=== PATIENT | female | born 1945 | race Caucasian/White ===

== ENCOUNTER 2024-05-15 17:40 | Observation (INO) | payer MEDICARE, SELFPAY ==
[2024-05-15] VITALS (7 sets, daily range): BP systolic 105–125; BP diastolic 47–89; PULSE 63–91; RESP 14–20; TEMP 36.4–36.8; O2SAT 93–97; BMI 25.4
--- NOTE | 2024-05-15 18:33 | CT_ITS ---
INDICATION: Pain EXAMINATION: CT ABDOMEN AND PELVIS WITHOUT CONTRAST - CT Abdomen And Pelvis W/O Contrast Injection TECHNIQUE: Helically acquired images were obtained of the abdomen and pelvis without oral or IV contrast. A radiation dose optimization technique was used for this scan. IV Contrast dosage and agent: None. Oral contrast: None. RADIATION DOSAGE (If Supplied By Facility): CTDIvol = ( 6.37 ) mGy, DLP = ( 308.77 ) mGycm COMPARISON: No pertinent previous examinations for comparison. FINDINGS: LOWER CHEST: 1. Lung bases are clear. 2. No cardiomegaly or pericardial effusion. 3. No significant coronary vascular calcifications. LIVER: The liver has normal configuration and density given the limitation of noncontrast exam.. No focal mass. GALLBLADDER AND BILIARY TREE: The gallbladder is surgically absent. No ductal dilatation. PANCREAS: No focal cystic or solid mass. SPLEEN: Normal size without focal cystic or solid mass. ADRENAL GLANDS: No nodules. KIDNEYS AND URETERS: Normal renal size and position. No hydronephrosis. PERITONEUM: No ascites or free air. No other fluid collection. BOWEL: Fluid-filled bowel segments including small and large bowel, sequelae of mild of diffuse enteritis is a consideration. Negligible formed stool noted. There is evidence of diverticulosis without diverticulitis. The appendix is not positively identified. LYMPH NODES: No enlarged mesenteric or retroperitoneal lymph nodes. VESSELS: Aorta is non-dilated. URINARY BLADDER: Unremarkable. REPRODUCTIVE ORGANS: No pelvic masses. ABDOMINAL WALL: No discrete abdominal or pelvic wall hernia. BONES: There is deformity of the superior endplate of L1 consistent with remote superior endplate compression. No acute fracture noted. No acutely acquired canal stenosis. No acute bony changes. CT/Abdomen/Pelvis without Cont IMPRESSION: 1. Fluid-filled large and small bowel segments with negligible formed stool. Sequelae of diffuse enteritis is a consideration. 2. No bowel obstruction abscess free fluid or free air. 3. Diverticulosis without diverticulitis. 4. The appendix is not positively identified and likely surgically absent. 5. Postop changes of prior cholecystectomy. No ductal dilatation. 6. No evidence of renal calcification or obstructive uropathy. Electronically Signed: Paco Veronica MD at 19:59 EST ,
[2024-05-15 19:07] LABS: Absolute Lymphocyte Count 0.12 X10^3/uL (0.83-4.51); Absolute Neutrophil Count 3.1 X10^3/uL (2.0-7.7); Basophil# 0.01 X10^3/uL; Basophil% 0.3 % (0-1); Eosinophil# 0.03 X10^3/uL; Eosinophils% 0.9 % (0-5); Hematocrit 36.4 % (37-47); Hemoglobin 12.2 g/dL (12.0-15.0); Lymphocyte # 0.12 X10^3/ul (0.83-4.51); Lymphocyte % 3.7 % (19-41); Mean Corp Hgb Conc 33.5 g/dL (32-36); Mean Corpuscular Hgb 33.5 pg (27.0-32.0); Mean Platelet Vol. 9.8 fl (6.2-12.0); Monocyte# 0.06 X10^3/uL; Monocyte% 1.8 % (0-10); NRBC Flagged by Analyzer 0 % (0-5); Neutrophil # 3.05 X10^3/uL (2.7-7.7); POSITIVE DIFFERENTIAL YES; Platelet Count 341 K/mm3 (150-450); RBC Distribution Width SD 59.2 fl (35.1-43.9); Red Blood Count 3.64 M/mm3 (4.2-5.4); White Blood Count 3.3 K/mm3 (4.4-11.0)
[2024-05-15] MEDS: 0.9% Normal Saline (500mL Bag) 500 ML 999 ML IV (19:09)
[2024-05-15] MEDS: Ondansetron 4 MG/2 ML Vial IV ×2 (19:09→22:51)
[2024-05-15] MEDS: fentaNYL 100 MCG/2 ML Ampul 25 MCG IV (19:09)
[2024-05-15 19:24] LABS: ALB/GLOB Ratio 1.1 RATIO (0.9-2.4); AST(SGOT) 72 U/L (15-37); Alanine Aminotransfer ALT/SGPT 77 U/L (13-56); Albumin, Serum 3.4 g/dL (3.2-5.0); Alkaline Phosphatase 124 U/L (45-117); Anion Gap 7 (5-15); BUN 20 mg/dL (7-18); BUN/Creat Ratio 25.2 RATIO (10-20); Calcium,Total 8.9 mg/dL (8.5-10.1); Chloride 112 mmol/L (98-107); Creatinine, Serum 0.79 mg/dL (0.55-1.02); EST Glomerular Filtration Rate 74 mL/min (>60); Est Glom Filt Rate - Afr Amer 90 mL/min (>60); Estimated Creatinine Clearance 47.85 ml/min; Globulin 3.1 g/dL (2.2-4.2); Glucose 120 mg/dL (74-106); Potassium 3.3 mmol/L (3.5-5.1); Protein, Total 6.5 g/dL (6.4-8.2); Sodium Level 142 mmol/L (136-145)
[2024-05-15 19:55] LABS: Squamous Epithelial Cells - UA 0 SEEN /hpf (5-10)
[2024-05-15 19:58] LABS: Color, Urine Straw (Yellow); Glucose, Dipstick Normal (Normal); Ketone-Dipstick Negative (Negative); Leukocyte Esterase-Dipstick 25 /ul (Negative); Nitrite-Dipstick Negative (Negative); Occult Blood-Urine 50 /ul (Negative); Protein-Dipstick 100 mg/dl (Negative); Specific Gravity, Urine 1.015 (1.002-1.030); Urine Clarity Cloudy (Clear); Urine Urobilinogen Normal (Normal)
[2024-05-15 20:04] LABS: Urine Bilirubin Dipstick 1 mg/dL (Negative)
[2024-05-15 20:07] LABS: Amorphous Sediment 4+; Bacteria 1+ /hpf (None Seen); Mucous, Urine 2+ /hpf (<or=2+); Red Blood Cells-Urine 5-10 SEEN /hpf (0-5); White Blood Cells 0-5 SEEN /hpf (0-5)
--- NOTE | 2024-05-15 20:23 | EDS_ITS ---
HPI HPI - GI History of Present Illness Chief Complaint: Flank Pain Informant: patient Narrative Narrative: Patient is a 79-year-old female presenting with acute onset of vomiting, inability to keep liquids down and right flank pain. Her symptom started after eating breakfast this morning. She notes he does feel lightheaded. She does reports every time she vomits she then pees improves her self. She is of a longstanding history of urinary incontinence. Patient states that she receives at [facility] for left-sided kidney stone. She states she had a urostomy and a stent. Those were removed a little over a week ago. She was seen by Dr. Dolan. She denies any fever or chills. [place] any chest pain or shortness of breath. Denies any change with urination. No other complaints or concerns reported this time. Had had prior cholecystectomy. [facility] Medical History (Updated 05/16/24 @ 01:[address] Kimmy Bennett, DO) GERD (gastroesophageal reflux disease) Alzheimer dementia Hemorrhoids Crohn's colitis Home Medications ?Medication ?Instructions ?Recorded ?Last Taken ?Type atorvastatin 20 mg tablet 20 mg PO DAILY 05/15/24 Unknown History cimetidine 200 mg tablet 200 mg PO 4X/DAY PRN PRN acid 05/15/24 Unknown History reflux cyanocobalamin (vitamin B-12) 1,000 mcg PO DAILY 05/15/24 Unknown History 1,000 mcg tablet escitalopram oxalate 10 mg tablet 10 mg PO DAILY 05/15/24 Unknown History esomeprazole magnesium 40 mg 40 mg PO Q24H 05/15/24 Unknown History capsule,delayed release estradiol 0.01% (0.1 mg/gram) vaginal 05/15/24 Unknown History vaginal cream fluticasone 250 mcg-salmeterol 50 1 ea inhalation BID 05/15/24 Unknown History mcg/dose blistr powdr for inhalation folic acid 1 mg tablet 1 mg PO DAILY 05/15/24 Unknown History memantine 5 mg tablet 5 mg PO DAILY 05/15/24 Unknown History mercaptopurine 50 mg tablet 50 mg PO DAILY crohn's 05/15/24 Unknown History potassium chloride 20 mEq 20 meq PO DAILY 05/15/24 Unknown History tablet,extended release(part/cryst) sucralfate 100 mg/mL oral 1 ml PO QHS 05/15/24 Unknown History suspension sulfamethoxazole 400 1 tab PO DAILY 05/15/24 Unknown History mg-trimethoprim 80 mg tablet Allergy/AdvReac Type Severity Reaction Status Date / Time Penicillins (PCN) Allergy Severe Swelling Verified 05/15/24 17:41 Surgical History H/O: hysterectomy History of cholecystectomy S/P small bowel resection Social History Smoking Status: Unknown if ever smoked ROS ROS ED Constitutional Constitutional ED: Denies chills or fever(s) Respiratory/Chest Respiratory/Chest: Denies cough Gastrointestinal Gastrointestinal: Reports abdominal pain, diarrhea, nausea and vomiting Genitourinary Genitourinary ED: Reports other Details: Urinary incontinence?chronic ; Denies dysuria or hematuria Musculoskeletal Musculoskeletal: Denies arthralgias or myalgias Integumentary Denies rash Hematologic/Lymphatic Hematologic/Lymphatic: Denies easy bleeding or easy bruising EXAM Physical Exam Const Vital Signs: 05/15/24 17:41 05/15/24 17:44 05/15/24 18:44 Temperature 97.5 F L 98 F 98 F Temperature Source Temporal Oral Oral Pulse Rate 91 91 89 Respiratory Rate 20 H 20 H 16 Blood Pressure 115/47 L 115/47 L 115/75 Blood Pressure Mean 69 69 88 Pulse Ox 96 96 94 Oxygen Delivery Method Room Air Room Air Room Air 05/15/24 19:00 05/15/24 20:00 05/15/24 21:00 Temperature 98 F 98.1 F 98.3 F Temperature Source Oral Oral Oral Pulse Rate 63 66 72 Respiratory Rate 14 18 16 Blood Pressure 125/53 H 108/56 L 105/89 H Blood Pressure Mean 77 73 94 Pulse Ox 96 97 93 Oxygen Delivery Method Room Air Room Air Room Air 05/15/24 23:00 05/15/24 23:00 Temperature 98.3 F Temperature Source Pulse Rate 72 71 Respiratory Rate 14 16 Blood Pressure 116/51 L 116/51 L Blood Pressure Mean 72 72 Pulse Ox 97 97 Oxygen Delivery Method Room Air Positive well nourished and well developed General Appearance ED: well developed HEENT Reports moist mucous membranes normocephalic Eyes PERRL Neck supple Resp normal respiratory effort and clear to auscultation bilaterally Cardio regular rate and regular rhythm GI non-tender and non-distended Auscultation: hyperactive bowel sounds Palpation: soft; Negative for tender, guarding or rigid Back/Spine no CVA tenderness Extremity full ROM Neuro Sensorium / Orientation: alert, oriented to person, oriented to place and oriented to time Motor Exam: general weakness Psych mental status grossly normal Skin no wounds Rashes: no rashes MDM MDM MDM Narrative Medical decision making narrative: Patient valuated for right-sided abdominal pain/flank pain as well as nausea and vomiting. Is only has baby had some diarrhea as well every time she vomits. Patient is given IV fentanyl, fluids and Zofran with improvement of symptoms. On repeat exam abdomen soft and nontender. Lab work including CBC, CMP, lactate and urinalysis is obtained. CT abdomen pelvis without contrast is obtained. Workup shows a mild leukopenia which could be suggestive of viral process. Hemoglobin is normal. CMP largely normal. She has a mild elevation of her AST and ALT but normal bilirubin. She has had a prior cholecystectomy. Low suspicion for choledocholithiasis. On exam she does not have tenderness in the right upper quadrant. Urinalysis shows small amount of blood but not particular ly consistent with UTI. Will send for culture however given her recent history. Patient is treated with Zofran and IV fluids. On repeat evaluation she still nauseous. She is given a second dose. She continues to have dry heaves. She states she does not feel comfortable going home. CT abdomen pelvis is most consistent with gastroenteritis with fluid-filled loops of small and large bowel. Consistent with diffuse enteritis. Patient unable to tolerate p.o. challenge and vomits. I started on maintenance fluid, magnesium added on and is given IV potassium replacement. Will be admitted for intractable nausea and vomiting. Urine culture pending but patient is on daily Bactrim per her urologist at this time. Case discussed with hospitalist for admission. Lab Data Attestation: I reviewed the patient's lab results. Labs: Laboratory Results - last 24 hr 05/15/24 05/15/24 05/15/24 17:55 18:40 19:39 WBC 3.3 L RBC 3.64 L Hgb 12.2 Hct 36.4 L MCV 100.0 H MCH 33.5 H MCHC 33.5 RDW Std Deviation 59.2 H RDW Coeff of Cesar 16.0 H Plt Count 341 MPV 9.8 Immature Gran % (Auto) 0.300 Neut % (Auto) 93.0 H Lymph % (Auto) 3.7 L [place] % (Auto) 1.8 Eos % (Auto) 0.9 Baso % (Auto) 0.3 Absolute Neuts (auto) 3.1 Absolute Lymphs (auto) 0.12 L Nucleated RBC % 0 Sodium 142 Potassium 3.3 L Chloride 112 H Carbon Dioxide 23.0 Anion Gap 7 BUN 20 H Creatinine 0.79 Estim Creat Clear Calc 47.85 Est GFR (MDRD) Af Amer 90 Est GFR (MDRD) Non-Af 74 BUN/Creatinine Ratio 25.2 H Glucose 120 H Lactic Acid 1.0 Calcium 8.9 Total Bilirubin 1.00 AST 72 H ALT 77 H Alkaline Phosphatase 124 H Total Protein 6.5 Albumin 3.4 Globulin 3.1 Albumin/Globulin Ratio 1.1 Urine Color Straw Urine Clarity Cloudy Urine pH 5.0 Ur Specific [place] 1.015 Urine Protein 100 H Urine Glucose (UA) Normal Urine Ketones Negative Urine Occult Blood 50 H Urine Nitrite Negative Urine Bilirubin 1 H Urine Urobilinogen Normal Ur Leukocyte Esterase 25 H Urine RBC 5-10 SEEN Urine WBC 0-5 SEEN Ur Squamous Epith Cells 0 SEEN Amorphous Sediment 4+ Urine Bacteria 1+ Urine Mucus 2+ Radiography Diagnostic Testing: Clinical Impression(s) from Imaging Studies Abdomen/Pelvis CT 05/15/24 18:33 IMPRESSION: 1. Fluid-filled large and small bowel segments with negligible formed stool. Sequelae of diffuse enteritis is a consideration. 2. No bowel obstruction abscess free fluid or free air. 3. Diverticulosis without diverticulitis. 4. The appendix is not positively identified and likely surgically absent. 5. Postop changes of prior cholecystectomy. No ductal dilatation. 6. No evidence of renal calcification or obstructive uropathy. Electronically Signed: Paco Veronica MD at 19:59 EST , Management Discussion w/another healthcare provider: Hospitalist Discharge Plan Triage Chief Complaint: Flank Pain ED Provider: Kimmy Bennett Dx/Rx/DC Orders Clinical Impression: Intractable nausea and vomiting, Gastroenteritis, Hypokalemia Prescriptions: No Action atorvastatin 20 mg tablet 20 mg PO DAILY cyanocobalamin (vitamin B-12) 1,000 mcg tablet 1,000 mcg PO DAILY cimetidine 200 mg tablet 200 mg PO 4X/DAY PRN PRN (Reason: acid reflux) esomeprazole magnesium 40 mg capsule,delayed release(DR/EC) 40 mg PO Q24H escitalopram oxalate 10 mg tablet 10 mg PO DAILY fluticasone propion-salmeterol 250-50 mcg/dose blister with device 1 ea INHALATION BID mercaptopurine 50 mg tablet 50 mg PO DAILY folic acid 1 mg tablet 1 mg PO DAILY estradiol 0.01 % (0.1 mg/gram) cream vaginal memantine 5 mg tablet 5 mg PO DAILY sulfamethoxazole-trimethoprim 400-80 mg tablet 1 tab PO DAILY sucralfate 100 mg/mL suspension 1 ml PO QHS potassium chloride 20 mEq tablet,ER particles/crystals 20 meq PO DAILY Primary Care Provider: Laura Johnston Referrals: Laura Johnston DO [Primary Care Provider] - Print Language: Hebrew Disposition Disposition: Acute Care Hospital [facility]
[2024-05-15] MEDS: 0.9% Normal Saline (1000mL) 1,000 ML 100 ML IV (22:51)
[2024-05-16] VITALS (9 sets, daily range): BP systolic 109–129; BP diastolic 56–63; PULSE 68–78; RESP 14–20; TEMP 36.6–37.2; O2SAT 94–97; BMI 25.7
--- NOTE | 2024-05-16 01:09 | HP.PCM.HOS_ITS ---
[facility] - General General Date of Admission: 05/16/24 Date of Service: 05/16/24 Chief Complaint: Nausea, Vomiting and Abdominal Pain. HPI Narrative VANDANA ROSEN, is a 79 F with a past medical history of hyperlipidemia; on atorvastatin, Alzheimer's dementia; on memantine, history of depression; on escitalopram, history of COPD; on fluticasone-salmeterol, history of Crohn's disease; s/p small bowel resection on mercaptopurine, history of Severe GERD; on cimetidine, esomeprazole and sucralfate, history of hemorrhoids, chronic urinary incontinence, history of hysterectomy, history of cholecystectomy, listed allergy to PCN (swelling) and recently diagnosed Left-sided kidney stone; s/p urostomy and stent at [facility] removed a little over a week ago by Dr. Dolan with her still taking Bactrim for a prescribed 30 day course who presents to [facility] ER complaining of nausea, vomiting and abdominal pain. Ms. Rosen reports her acute symptoms began on the morning of May 15, 2024 after eating breakfast with nausea and lightheadedness followed by multiple episodes of bilious emesis. She also admits to abdominal pain that was primarily focused in her Right lower abdomen and flank with nonbloody diarrhea but she denies associated fever, chills, chest pain, SOB, dysuria, hematuria, recent sick contacts or a known personal history of Clostridium difficile colitis. In the ER she was noted to have CT evidence of fluid-filled large and small bowel segments with negligible formed stool consistent with suspected Enteritis with no evidence bowel obstruction, abscess, free-fluid or free-air c omplicated by laboratory evidence of Leukopenia of 3.3K and Hypokalemia of 3.3 mmol/L present on admission along with an abnormal UA significant for colonization rather than acute infection and she was then admitted to the general medical floor under observation status for ongoing care for a stay that is expected to be less than 2 midnights. [facility] Medical History (Updated 05/16/24 @ 04:[address] Hermelindo Trejo, DO) GERD (gastroesophageal reflux disease) Alzheimer dementia Hemorrhoids Crohn's colitis Home Medications ?Medication ?Instructions ?Recorded ?Last Taken ?Type atorvastatin 20 mg tablet 20 mg PO DAILY hld 05/15/24 Unknown History cimetidine 200 mg tablet 200 mg PO 4X/DAY PRN PRN acid 05/15/24 Unknown History reflux cyanocobalamin (vitamin B-12) 1,000 mcg PO DAILY supplement 05/15/24 Unknown History 1,000 mcg tablet escitalopram oxalate 10 mg tablet 10 mg PO DAILY depression 05/15/24 Unknown History esomeprazole magnesium 40 mg 40 mg PO Q24H gerd 05/15/24 Unknown History capsule,delayed release fluticasone 250 mcg-salmeterol 50 1 ea inhalation BID copd 05/15/24 Unknown History mcg/dose blistr powdr for inhalation folic acid 1 mg tablet 1 mg PO DAILY supllement 05/15/24 Unknown History memantine 5 mg tablet 5 mg PO DAILY dementia 05/15/24 Unknown History mercaptopurine 50 mg tablet 50 mg PO DAILY crohn's 05/15/24 Unknown History potassium chloride 20 mEq 20 meq PO DAILY supplement 05/15/24 Unknown History tablet,extended release(part/cryst) sucralfate 100 mg/mL oral 1 ml PO QHS stomach 05/15/24 Unknown History suspension sulfamethoxazole 400 1 tab PO DAILY atb 05/15/24 Unknown History mg-trimethoprim 80 mg tablet Allergy/AdvReac Type Severity Reaction Status Date / Time Penicillins (PCN) Allergy Severe Swelling Verified 05/15/24 17:41 Surgical History (Updated 05/16/24 @ 04:[address] Hermelindo Trejo DO) H/O: hysterectomy History of cholecystectomy S/P small bowel resection Social History Smoking Status: Former smoker ROS ROS Narrative Review of Systems: Constitutional: Patient denies fever or chills. Eyes: Patient denies changes in vision or discharge from eyes. ENT: Patient admits to thick phlegm in throat but she denies runny nose, sore throat or ear pain. Resp: Patient denies SOB or cough. CV: Patient denies chest pain, palpitations or heart racing. GI: Patient admits to abdominal pain with nausea and vomiting with bilious emesis and nonbloody diarrhea. : Patient admits to chronic urinary incontinence but she denies dysuria or hematuria. MSK: Patient denies arthralgias or myalgias. Skin: Patient denies rash, abscess or jaundice. Psych: Patient denies symptoms of uncontrolled depression or anxiety. Neuro: Patient denies headache, paresthesias or focal neurologic deficits. Allergy: Patient denies lip swelling, tongue swelling or urticaria. Hematology: Patient denies easy bleeding or easy bruisability. Endocrinology: Patient denies polyuria, polydipsia or polyphagia. 14 point ROS otherwise negative except for positives noted above in HPI. Vital Signs Vital Signs Vital Signs: 05/15/24 17:41 05/15/24 17:44 05/15/24 18:44 Temperature 97.5 F L 98 F 98 F Temperature Source Temporal Oral Oral Pulse Rate 91 91 89 Respiratory Rate 20 H 20 H 16 Blood Pressure 115/47 L 115/47 L 115/75 Blood Pressure Mean 69 69 88 Pulse Ox 96 96 94 Oxygen Delivery Method Room Air Room Air Room Air 05/15/24 19:00 05/15/24 20:00 05/15/24 21:00 Temperature 98 F 98.1 F 98.3 F Temperature Source Oral Oral Oral Pulse Rate 63 66 72 Respiratory Rate 14 18 16 Blood Pressure 125/53 H 108/56 L 105/89 H Blood Pressure Mean 77 73 94 Pulse Ox 96 97 93 Oxygen Delivery Method Room Air Room Air Room Air 05/15/24 23:00 05/15/24 23:00 Temperature 98.3 F Temperature Source Pulse Rate 72 71 Respiratory Rate 14 16 Blood Pressure 116/51 L 116/51 L Blood Pressure Mean 72 72 Pulse Ox 97 97 Oxygen Delivery Method Room Air Weight Weight: 134 lb 14.766 oz Body Mass Index (BMI) 25.4 Physical Exam Const alert, oriented x3, no apparent distress and average body habitus General Appearance: cooperative HEENT normocephalic, head/scalp atraumatic and hearing grossly normal bilaterally HEENT Narrative: Mucous membranes dry. Eyes PERRL and EOMs intact bilaterally Neck no lymphadenopathy and supple Resp normal respiratory effort, no retractions, no use of accessory muscles and clear to auscultation bilaterally Cardio regular rate and regular rhythm GI normal to inspection, nondistended, normoactive bowel sounds, soft to palpation, non-tender and non-distended Auscultation: hyperactive bowel sounds Extremity normal to inspection, full ROM and no clubbing, cyanosis or edema Skin Skin Narrative: Patient has no evidence of rash, abscess or jaundice. Neuro oriented x3, CN's II-XII intact bilaterally, moves all extremities and no focal motor deficits Sensorium / Orientation: awake, alert, oriented to person, oriented to place and oriented to time Speech: speech normal Psych affect normal Results Medical Records Data Attestation: I reviewed the patient's medical records Lab / Micro Data Attestation: I reviewed the patient's lab results. 05/15/24 17:55 05/15/24 17:55 Labs: Laboratory Results - last 24 hr 05/15/24 17:55: WBC 3.3 L, RBC 3.64 L, Hgb 12.2, Hct 36.4 L, MCV 100.0 H, MCH 33.5 H, MCHC 33.5, RDW Std Deviation 59.2 H, RDW Coeff of Cesar 16.0 H, Plt Count 341, MPV 9.8, Immature Gran % (Auto) 0.300, Neut % (Auto) 93.0 H, Lymph % (Auto) 3.7 L, [place] % (Auto) 1.8, Eos % (Auto) 0.9, Baso % (Auto) 0.3, Absolute Neuts (auto) 3.1, Absolute Lymphs (auto) 0.12 L, Nucleated RBC % 0, Sodium 142, P otassium 3.3 L, Chloride 112 H, Carbon Dioxide 23.0, Anion Gap 7, BUN 20 H, Creatinine 0.79, Estim Creat Clear Calc 47.85, Est GFR (MDRD) Af Amer 90, Est GFR (MDRD) Non-Af 74, BUN/Creatinine Ratio 25.2 H, Glucose 120 H, Calcium 8.9, Total Bilirubin 1.00, AST 72 H, ALT 77 H, Alkaline Phosphatase 124 H, Total Protein 6.5, Albumin 3.4, Globulin 3.1, Albumin/Globulin Ratio 1.1 05/15/24 18:40: Lactic Acid 1.0 05/15/24 19:39: Urine Color Straw, Urine Clarity Cloudy, Urine pH 5.0, Ur Specific [place] 1.015, Urine Protein 100 H, Urine Glucose (UA) Normal, Urine Ketones Negative, Urine Occult Blood 50 H, Urine Nitrite Negative, Urine Bilirubin 1 H, Urine Urobilinogen Normal, Ur Leukocyte Esterase 25 H, Urine RBC 5-10 SEEN, Urine WBC 0-5 SEEN, Ur Squamous Epith Cells 0 SEEN, Amorphous Sediment 4+, Urine Bacteria 1+, Urine Mucus 2+ Micro: Microbiology 05/15/24 20:54 Mucosa - Nose SARS-CoV-2, Influenza & RSV (PCR) - Final Imaging Radiology Impression Abdomen/Pelvis CT 05/15/24 18:33 IMPRESSION: 1. Fluid-filled large and small bowel segments with negligible formed stool. Sequelae of diffuse enteritis is a consideration. 2. No bowel obstruction abscess free fluid or free air. 3. Diverticulosis without diverticulitis. 4. The appendix is not positively identified and likely surgically absent. 5. Postop changes of prior cholecystectomy. No ductal dilatation. 6. No evidence of renal calcification or obstructive uropathy. Electronically Signed: Paco Veronica MD at 19:59 EST , Assessment & Plan Assessment/Plan (1) Gastroenteritis: (2) Intractable nausea and vomiting: (3) Leukopenia: QUALIFIERS: Leukopenia type: unspecified Qualified Code(s): D 72.819 - Decreased white blood cell count, unspecified (4) Hypokalemia: (5) History of removal of ureteral stent: (6) History of urostomy: (7) Adverse drug reaction: QUALIFIERS: Encounter type: initial encounter Qualified Code(s): T50.905A - Adverse effect of unspecified drugs, medicaments and biological substances, initial encounter (8) History of Crohn's disease: (9) S/P small bowel resection: (10) GERD (gastroesophageal reflux disease): QUALIFIERS: Esophagitis presence: esophagitis presence not specified Qualified Code(s): K21.9 - Gastro-esophageal reflux disease without esophagitis PLAN: Plan 1. Enteritis on CT with intractable nausea, vomiting and nonbloody diarrhea with leukopenia of 3.3K present on admission - Admit to general medical floor under enteric precautions. Volume resuscitate and start empiric IV Flagyl in case of Clostridium difficile colitis after recent antibiotic treatment. Recheck CBC in AM to follow trend. Give Protonix IV daily. Give IV Zofran prn nausea. Give Tylenol prn for [id number] (level 1-5/10) pain or fever. Give Morphine IV prn for severe (level 6-10/10) pain. 2. Hypokalemia of 3.3 mmol/L present on admission complicating #1 - Give supplemental IV and oral KCl and then recheck level in AM to confirm repletion. 3. Recently diagnosed Left-sided kidney stone; s/p urostomy and stent at [facility] removed a little over a week ago by Dr. Dolan with her still taking Bactrim for a prescribed 30 day course with suspected Adverse Drug Reaction to Bactrim triggering #1 & #2 - Hold Bactrim with UA negative for acute infection at time of admission until C. difficile ruled out on stool studies. 4. History of Crohn's disease; s/p small bowel resection on mercaptopurine adding to the medical complexity of #1 - #3 - Stable with no evidence of acute flare this time. Resume mercaptopurine as before. 5. History of Severe GERD; on cimetidine, esomeprazole and sucralfate - Continue PPI IV as noted above. Otherwise, continue prn cimetidine and sucralfate as previous. 6. Hyperlipidemia; on atorvastatin - Restart statin once patient is able to tolerate oral intake. 7. Alzheimer's dementia; on memantine - Apparently mild with patient having a very good memory for recent events. 8. History of depression; on escitalopram - Continue current regimen. 9. History of COPD; on fluticasone-salmeterol - Stable with no evidence of acute flare. Maintain current regimen plus give nebulizers prn. 10. History of hemorrhoids - Noted. 11. Chronic urinary incontinence - Stable. 12. History of hysterectomy - Noted. 13. History of cholecystectomy - Noted. 14. Listed allergy to PCN (swelling) - Noted. 15. DVT prophylaxis - Lovenox 40 mg sq daily plus SCD's. Total time: Approximately 85 minutes. Charges/Coding Visit Charges OBSV E&M: 44188 Observ/hosp same date L3
[2024-05-16 01:38] LABS: Magnesium 1.6 mg/dL (1.6-2.6)
[2024-05-16] MEDS: Potassium Chloride 10mEq/100mL 10 MEQ/100 ML IV.SOLN. 100 MEQ IV BOLUS (01:39)
[2024-05-16] MEDS: Pantoprazole Sodium 40 MG in 0.9% Normal Saline (100mL MB+) 100 ML 330 MG IV (02:37)
[2024-05-16] MEDS: Potassium Chloride 40 MEQ in 0.9% Normal Saline 1,000 ML 125 ML IV (02:47)
[2024-05-16] MEDS: metroNIDAZOLE 500 MG/100 ML BAG 100 MG IV ×3 (02:57→22:12)
[2024-05-16 06:03] LABS: Absolute Lymphocyte Count 0.12 X10^3/uL (0.83-4.51); Absolute Neutrophil Count 2.4 X10^3/uL (2.0-7.7); Basophil# 0.01 X10^3/uL; Basophil% 0.4 % (0-1); Eosinophil# 0.02 X10^3/uL; Eosinophils% 0.8 % (0-5); Hematocrit 29.3 % (37-47); Hemoglobin 9.8 g/dL (12.0-15.0); Lymphocyte # 0.12 X10^3/ul (0.83-4.51); Lymphocyte % 4.5 % (19-41); Mean Corp Hgb Conc 33.4 g/dL (32-36); Mean Corpuscular Hgb 33.9 pg (27.0-32.0); Mean Corpuscular Volume 101.4 fL (81-99); Mean Platelet Vol. 9.7 fl (6.2-12.0); Monocyte# 0.05 X10^3/uL; Monocyte% 1.9 % (0-10); NRBC Flagged by Analyzer 0.8 % (0-5); Neutrophil # 2.43 X10^3/uL (2.7-7.7); POSITIVE DIFFERENTIAL YES; POSITIVE MORPHOLOGY YES; Platelet Count 272 K/mm3 (150-450); RBC Distribution Width CV 16.3 % (11.6-14.6); Red Blood Count 2.89 M/mm3 (4.2-5.4); White Blood Count 2.6 K/mm3 (4.4-11.0)
[2024-05-16 06:10] LABS: Differential Indicated SCAN CRITERIA MET
[2024-05-16 06:36] LABS: AST(SGOT) 39 U/L (15-37); Alanine Aminotransfer ALT/SGPT 65 U/L (13-56); Albumin, Serum 2.5 g/dL (3.2-5.0); Alkaline Phosphatase 101 U/L (45-117); Anion Gap 3 (5-15); BUN 14 mg/dL (7-18); BUN/Creat Ratio 22.1 RATIO (10-20); Calcium,Total 7.5 mg/dL (8.5-10.1); Chloride 118 mmol/L (98-107); Creatinine, Serum 0.63 mg/dL (0.55-1.02); EST Glomerular Filtration Rate 96 mL/min (>60); Est Glom Filt Rate - Afr Amer 116 mL/min (>60); Estimated Creatinine Clearance 48.03 ml/min; Globulin 2.4 g/dL (2.2-4.2); Glucose 100 mg/dL (74-106); Potassium 3.5 mmol/L (3.5-5.1); Protein, Total 4.9 g/dL (6.4-8.2); Sodium Level 143 mmol/L (136-145); Thyroid Stim Hormone (TSH) 0.474 uIU/mL (0.358-3.740)
[2024-05-16 06:49] LABS: Differential Comment SCANNED
[2024-05-16] MEDS: Budesonide Respules 0.5 MG/2 ML AMPUL.NEB. INHALATION ×2 (07:38→19:22)
[2024-05-16] MEDS: Albuterol 2.5 MG/3 ML VIAL.NEB. INHALATION ×3 (07:38→19:22)
[2024-05-16] MEDS: Memantine Hydrochloride 5 MG Tablet PO (08:58)
[2024-05-16] MEDS: Lactobacillis Acidophilus 1 CAP PO ×4 (08:58→22:11)
[2024-05-16] MEDS: Potassium Chloride Oral Tablet 20 MEQ PO (08:58)
[2024-05-16] MEDS: Folic Acid 1 MG Tablet PO (08:58)
[2024-05-16] MEDS: Cyanocobalamin 500 MCG Tablet 1000 MCG PO (08:59)
[2024-05-16] MEDS: Enoxaparin 40 MG/0.4 ML Syringe SC (08:59)
[2024-05-16] MEDS: Escitalopram Oxalate 10 MG Tablet PO (08:59)
[2024-05-16] MEDS: Potassium Chloride 40 MEQ in 0.9% Normal Saline 1,000 ML 125 MEQ IV (15:16)
--- NOTE | 2024-05-16 15:21 | CASEMGMT ---
RN CM into pt room, pt nurse in room. Pt states she lives with her dtr in a single story home. Pt is able to bathe and dress herself. She does her own laundry. Pt dtr does the cooking and gets groceries and provides transportation. Pt has a walker and cane at home. She usually uses the can. 6 cl=21, therapy ordered but has not seen pt yet. Pt has had [facility] in the past. Pt denies any homegoing needs at this time.
--- NOTE | 2024-05-16 17:24 | PCM.HOSP.N ---
Hospitalist Note Patient was seen and examined briefly today, she has had no more nausea and vomiting today, she requested that I advance her diet. Patient's stool tests are pending at this time. I will repeat the patient's CBC tomorrow morning.
[2024-05-16] MEDS: Atorvastatin Calcium 20 MG Tablet PO (22:12)
[2024-05-16] MEDS: Sucralfate 1 GM Tablet PO (22:12)
[2024-05-17 04:06] LABS: HEPATITIS B SURFACE AG Negative (Negative); Hep C Antibodies Non Reactive (Non Reactive); Hepatitis A IgM Antibody Negative (Negative); Hepatitis B Core AB IgM Negative (Negative)
[2024-05-17 04:45] VITALS: BP 126/62; PULSE 62; RESP 18; TEMP 36.6; O2SAT 97
[2024-05-17 05:08] VITALS: BMI 27.5
[2024-05-17] MEDS: metroNIDAZOLE 500 MG/100 ML BAG 100 MG IV (05:19)
[2024-05-17 05:35] LABS: Absolute Lymphocyte Count 0.38 X10^3/uL (0.83-4.51); Absolute Neutrophil Count 1.8 X10^3/uL (2.0-7.7); Basophil# 0.01 X10^3/uL; Basophil% 0.4 % (0-1); Eosinophil# 0.02 X10^3/uL; Eosinophils% 0.9 % (0-5); Hematocrit 29.1 % (37-47); Hemoglobin 9.6 g/dL (12.0-15.0); Lymphocyte # 0.38 X10^3/ul (0.83-4.51); Lymphocyte % 16.7 % (19-41); Mean Corpuscular Hgb 33.8 pg (27.0-32.0); Mean Corpuscular Volume 102.5 fL (81-99); Mean Platelet Vol. 9.4 fl (6.2-12.0); Monocyte# 0.09 X10^3/uL; Monocyte% 3.9 % (0-10); NRBC Flagged by Analyzer 0 % (0-5); Neutrophil # 1.77 X10^3/uL (2.7-7.7); Neutrophil % 77.7 % (47-70); POSITIVE DIFFERENTIAL YES; Platelet Count 237 K/mm3 (150-450); RBC Distribution Width SD 63.8 fl (35.1-43.9); Red Blood Count 2.84 M/mm3 (4.2-5.4); White Blood Count 2.3 K/mm3 (4.4-11.0)
[2024-05-17 06:04] LABS: Differential Indicated SCAN CRITERIA MET
[2024-05-17 06:38] LABS: Differential Comment SCANNED
[2024-05-17 07:25] VITALS: PULSE 67; RESP 17; O2SAT 97
[2024-05-17] MEDS: Albuterol 2.5 MG/3 ML VIAL.NEB. INHALATION (07:25)
[2024-05-17] MEDS: Budesonide Respules 0.5 MG/2 ML AMPUL.NEB. INHALATION (07:25)
[2024-05-17 10:01] VITALS: BP 121/66; PULSE 67; RESP 18; TEMP 36.6; O2SAT 95
[2024-05-17] MEDS: Folic Acid 1 MG Tablet PO (10:17)
[2024-05-17] MEDS: Potassium Chloride Oral Tablet 20 MEQ PO (10:17)
[2024-05-17] MEDS: Lactobacillis Acidophilus 1 CAP PO (10:17)
[2024-05-17] MEDS: Enoxaparin 40 MG/0.4 ML Syringe SC (10:18)
[2024-05-17] MEDS: Escitalopram Oxalate 10 MG Tablet PO (10:18)
[2024-05-17] MEDS: Memantine Hydrochloride 5 MG Tablet PO (10:18)
[2024-05-17] MEDS: Cyanocobalamin 500 MCG Tablet 1000 MCG PO (10:18)
--- NOTE | 2024-05-17 10:25 | DCINST_ITS ---
Discharge Instructions Diet Discharge Diet: No restrictions DC O2, CPAP, BIPAP needs Home O2 Discharge instructions: No Dressing / Incision Discharge Activity: Return to Normal Activity Weight Bearing Status: Full weight bearing Follow Up Care Test Results: Test results from this visit will be discussed in further detail at your follow- up appointment, if applicable. Discharge Plan Admission Admit Date/Time: 05/16/24 01:30 Primary Reason for Your Visit: Noro virus infection Attending Provider: Hector Sorensen Primary Care Provider: Laura Johnston Consulting Providers: Hermelindo Trejo Discharge Orders/Prescriptions Prescriptions: Continued atorvastatin 20 mg tablet 20 mg PO DAILY cyanocobalamin (vitamin B-12) 1,000 mcg tablet 1,000 mcg PO DAILY cimetidine 200 mg tablet 200 mg PO 4X/DAY PRN PRN (Reason: acid reflux) esomeprazole magnesium 40 mg capsule,delayed release(DR/EC) 40 mg PO Q24H escitalopram oxalate 10 mg tablet 10 mg PO DAILY fluticasone propion-salmeterol 250-50 mcg/dose blister with device 1 ea INHALATION BID mercaptopurine 50 mg tablet 50 mg PO DAILY folic acid 1 mg tablet 1 mg PO DAILY memantine 5 mg tablet 5 mg PO DAILY sulfamethoxazole-trimethoprim 400-80 mg tablet 1 tab PO DAILY sucralfate 100 mg/mL suspension 1 ml PO QHS potassium chloride 20 mEq tablet,ER particles/crystals 20 meq PO DAILY Referrals / Follow Up: Laura Johnston DO [Primary Care Provider] - See Referral Note (Within 2 weeks, have a repeat CBC drawn due to anemia and low white count) Disposition Disposition (needs filled in before D/C Order can be placed): Home, Self Care
--- NOTE | 2024-05-17 10:29 | DS.PCM_ITS ---
Providers Date of Admission: 05/16/24 Date of Discharge: 05/17/24 Primary Care Physician: Dr. Laura Johnston, Reason For Visit: ENTERITIS WITH NAUSEA VOMITING AND ABDOMINAL PAIN Diagnosis Discharge Diagnosis (1) Gastroenteritis: Status: Acute Code(s): K52.9 - Noninfective gastroenteritis and colitis, unspecified (2) Intractable nausea and vomiting: Status: Acute Code(s): R11.2 - Nausea with vomiting, unspecified (3) Leukopenia: Status: Acute Code(s): D72.819 - Decreased white blood cell count, unspecified Qualifiers: Leukopenia type: unspecified Qualified Code(s): D72.819 - Decreased white blood cell count, unspecified (4) Hypokalemia: Status: Acute Code(s): E87.6 - Hypokalemia (5) History of removal of ureteral stent: Status: Acute Code(s): Z98.890 - Other specified postprocedural states (6) History of urostomy: Status: Acute Code(s): Z98.890 - Other specified postprocedural states (7) Adverse drug reaction: Status: Acute Code(s): T50.905A - Adverse effect of unspecified drugs, medicaments and biological substances, initial encounter Qualifiers: Encounter type: initial encounter Qualified Code(s): T50.905A - Adverse effect of unspecified drugs, medicaments and biological substances, initial encounter (8) History of Crohn's disease: Status: Acute Code(s): Z87.19 - Personal history of other diseases of the digestive system (9) S/P small bowel resection: Status: Acute Code(s): Z90.49 - Acquired absence of other specified parts of digestive tract (10) GERD (gastroesophageal reflux disease): Status: Acute Code(s): K21.9 - Gastro-esophageal reflux disease without esophagitis Qualifiers: Esophagitis presence: esophagitis presence not specified Qualified Code(s): K21.9 - Gastro-esophageal reflux disease without esophagitis Plan Final diagnosis: #1 enteritis secondary to norovirus infection #2 leukopenia secondary to norovirus infection #3 acute anemia-etiology unclear #4 hyperlipidemia #5 acute debility secondary to #1 Medications at Discharge Home Medications atorvastatin 20 mg tablet 20 mg PO DAILY hld 05/15/24 cimetidine 200 mg tablet 200 mg PO 4X/DAY PRN PRN acid reflux 05/15/24 cyanocobalamin (vitamin B-12) 1,000 mcg tablet 1,000 mcg PO DAILY supplement 05/15/24 escitalopram oxalate 10 mg tablet 10 mg PO DAILY depression 05/15/24 esomeprazole magnesium 40 mg capsule,delayed release 40 mg PO Q24H gerd 05/15/24 fluticasone 250 mcg-salmeterol 50 mcg/dose blistr powdr for inhalation 1 ea inhalation BID copd 05/15/24 folic acid 1 mg tablet 1 mg PO DAILY supllement 05/15/24 memantine 5 mg tablet 5 mg PO DAILY dementia 05/15/24 mercaptopurine 50 mg tablet 50 mg PO DAILY crohn's 05/15/24 potassium chloride 20 mEq tablet,extended release(part/cryst) 20 meq PO DAILY supplement 05/15/24 sucralfate 100 mg/mL oral suspension 1 ml PO QHS stomach 05/15/24 sulfamethoxazole 400 mg-trimethoprim 80 mg tablet 1 tab PO DAILY atb 05/15/24 Hospital Course Operations None Procedures None Summary of Care Provided Minutes Spent on Discharge: 30 Hospital Course: This 79-year-old female presented to the emergency room at [facility] with vomiting and inability to keep fluids down along with right flank pain. Patient had a stent in her ureter removed approximately week prior. Workup in the emergency room showed a mild leukopenia, hemoglobin was normal, urinalysis showed a small amount of blood but other findings were not consistent with UTI. Patient was given antinausea medication but continued to have dry heaves in the emergency room, she was started on maintenance fluid and given IV potassium due to a potassium level of 3.3. CT of the abdomen and pelvis was most consistent with gastroenteritis showing fluid-filled loops of small and large bowel. Patient was admitted for intractable nausea and vomiting, patient's symptoms improved over the next several hours and her diet was advanced. Stool specimen showed positive for norovirus. On 05/17/2024, patient was seen and examined: On examination she appeared in good health and spirits, she does not appear to be in any distress. Vital signs as documented. Skin warm and dry and without overt rashes. Neck without JVD, thyroid appears normal, trachea is midline, neck is supple. Lungs clear, normal air movement was noted. Heart exam notable for regular rhythm, normal sounds and absence of murmurs, rubs or gallops. Abdomen unremarkable and without evidence of organomegaly, masses, or abdominal aortic enlargement, bowel sounds are present in all 4 quadrants, no abdominal tenderness was noted. Extremities nonedematous, no cyanosis was noted, no clubbing was noted. Neuro: Cranial nerves II through XII are grossly intact, no focal motor deficits were noted, sensation to light touch and pinprick is intact, motor exam 5/5 throughout. Psych: Patient is alert and oriented x3, she does not appear anxious or depressed, she does not appear agitated. Patient was discharged home in stable condition on 05/17/2024 Weight / BMI Weight Weight: 66.1 kg Body Mass Index (BMI) 27.5 ABG / Lab / Microbiology Data 05/17/24 05:10 05/16/24 05:29 Laboratory: Laboratory Results - last 24 hr 05/16/24 05:29: Hepatitis A IgM Ab Negative, Hep Bs Antigen Negative, Hep B Core IgM Ab Negative, Hepatitis C Ab (EIA) Non Reactive, Hep C Ab Comment Comment 05/17/24 05:10: WBC 2.3 L, RBC 2.84 L, Hgb 9.6 L, Hct 29.1 L, MCV 102.5 H, MCH 33.8 H, MCHC 33.0, RDW Std Deviation 63.8 H, RDW Coeff of Cesar 17.0 H, Plt Count 237, MPV 9.4, Immature Gran % (Auto) 0.400, Neut % (Auto) 77.7 H, Lymph % (Auto) 16.7 L, [place] % (Auto) 3.9, Eos % (Auto) 0.9, Baso % (Auto) 0.4, Absolute Neuts (auto) 1.8 L, Absolute Lymphs (auto) 0.38 L, Nucleated RBC % 0, Differential Comment SCANNED, Diff Path Review May Microbiology: Microbiology 05/16/24 11:45 Stool Ova and Parasites - Final 05/15/24 19:39 Urine, Catheterized Urine Culture - Final Culture exhibits no growth. 05/16/24 11:45 Stool Stool Lactoferrin - Final 05/16/24 11:45 Stool Enteric Bacteriology - Final Norovirus 05/16/24 11:45 Stool Clostridioides difficile (PCR) - Final 05/15/24 20:54 Mucosa - Nose SARS-CoV-2, Influenza & RSV (PCR) - Final D/C Instructions Discharge Diet: No restrictions Weight Bearing Status: Full weight bearing DC O2, CPAP, BIPAP Needs Home O2 Discharge instructions: No Meaningful Use Info Meaningful Use Meaningful Use Diagnoses (Choose all that apply): None applicable Ischemic Stroke Statin Dosing Therapy Reference: STATIN DOSE THERAPY REFERENCE: * Patients > 75 years receive moderate or high dose statin therapy. * Patients 75 years or YOUNGER should receive HIGH intensity statin dose unless contraindicated. You will be required to document reason for non-treatment if statin daily dose does not meet guidelines. HIGH DOSE STATIN THERAPY DAILY Atorvastatin > than or = to 40 mg Rosuvastatin > than or = to 20 mg Amlodipine + Atorvastatin > than or = to 2.5/40 mg Ezetimibe + Simvastatin 10/80 mg Simvastatin 80mg Discharge Plan Admission Admit Date/Time: 05/16/24 01:30 Primary Reason for Your Visit: Noro virus infection Attending Provider: Hector Sorensen Primary Care Provider: Laura Johnston Consulting Providers: Hermelindo Trejo Discharge Orders/Prescriptions Prescriptions: Continued atorvastatin 20 mg tablet 20 mg PO DAILY cyanocobalamin (vitamin B-12) 1,000 mcg tablet 1,000 mcg PO DAILY cimetidine 200 mg tablet 200 mg PO 4X/DAY PRN PRN (Reason: acid reflux) esomeprazole magnesium 40 mg capsule,delayed release(DR/EC) 40 mg PO Q24H escitalopram oxalate 10 mg tablet 10 mg PO DAILY fluticasone propion-salmeterol 250-50 mcg/dose blister with device 1 ea INHALATION BID mercaptopurine 50 mg tablet 50 mg PO DAILY folic acid 1 mg tablet 1 mg PO DAILY memantine 5 mg tablet 5 mg PO DAILY sulfamethoxazole-trimethoprim 400-80 mg tablet 1 tab PO DAILY sucralfate 100 mg/mL suspension 1 ml PO QHS potassium chloride 20 mEq tablet,ER particles/crystals 20 meq PO DAILY Referrals / Follow Up: Laura Johnston DO [Primary Care Provider] - See Referral Note (Within 2 weeks, have a repeat CBC drawn due to anemia and low white count) Disposition Disposition (needs filled in before D/C Order can be placed): Home, Self Care Charges/Coding Visit Charges Inpatient E&M: 39447 Disch Hosp
[2024-05-19 08:36] LABS: Pathologist Review Reviewed
== END 2024-05-17 12:25 | disposition home or self-care (01) ==
LOC: ED 05-16 01:20 → MS3 05-16 01:46
PROVIDERS: Admitting Provider Internal Medicine; Emergency Provider Emergency Medicine; PCP Family Medicine; Referring Provider Internal Medicine; Visit Provider Internal Medicine
DX: A08.11 Acute gastroenteropathy due to Norwalk agent (principal); K50.90 Crohn's disease, unspecified, without complications; G30.9 Alzheimer's disease, unspecified; F02.80 Dementia in other diseases classified elsewhere, unspecified severity, without behavioral disturbance, psychotic disturbance, mood disturbance, and anxiety; J44.9 Chronic obstructive pulmonary disease, unspecified; E87.6 Hypokalemia; Z87.891 Personal history of nicotine dependence; E78.5 Hyperlipidemia, unspecified; D64.9 Anemia, unspecified; R53.81 Other malaise; K21.9 Gastro-esophageal reflux disease without esophagitis; R32 Unspecified urinary incontinence; Z79.899 Other long term (current) drug therapy; Z79.51 Long term (current) use of inhaled steroids; F32.A Depression, unspecified
CPT/HCPCS: 36415; 74176; 80053; 80074; 81001; 83605; 83630; 83735; 84100; 84443; 85025; 87086; 87177; 87209; 87493; 87506; 87631; 94640; 94668; 96361; 96365; 96366; 96368; 96372; 96375; 96376; 99221; 99252; 99285; P9612; A4216; G0378; G0463; J2405